=== PATIENT | male | born 1985 | race Caucasian/White ===

== ENCOUNTER 2022-11-13 17:54 | Emergency (ER) | payer OTHER, SELFPAY ==
[2022-11-13 18:01] VITALS: BP 167/115; PULSE 101; RESP 14; TEMP 36.5; O2SAT 98; BMI 31.7
--- NOTE | 2022-11-13 19:13 | ED.CHESTPAIN ---
HPI - Chest Pain General Time Seen by Provider: 19:14 Date Seen: 11/13/22 Chief Complaint: Chest Pain Stated Complaint: Chest Pain Time Seen by Provider: 11/13/22 18:13 Source: patient, RN notes reviewed and old records reviewed Mode of arrival: ambulatory Limitations: no limitations History of Present Illness HPI narrative: Jalen is a very pleasant 37-year-old gentleman nonsmoker with history of untreated hypertension who comes to the emergency room for evaluation regarding chest pain. Patient notes that his chest discomfort is in his left side of his chest and has been going on for weeks. He notes that it does not get worse when he is active in fact he kind of forgets about it at that time. He denied cough or shortness of breath to me but had expressed some shortness of breath and lightheadedness to the nurse. He has not had fever cough cold or congestion. He states that when the chest pain occurs he presses his thumb into the muscle and it seems to help. However when I ask him if the pain is on the outside of his chest he feels that it is deeper. Position changes do not really change the pain and as previously noted when he is active he states that he thinks his mind is not on it. He denies syncope, vertigo, abdominal pain, back pain. The pain does not radiate. He has no personal history of heart problems. He does describe noted high blood pressure that has been untreated for a long time. He does agree that he snores at night any does not use a CPAP. 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 He states that his made him appointment with primary care this coming week. He is sent in today as he had talked to a triage nurse. Jalen denies any calf tenderness, history of DVT, lower extremity edema. He denies a family history of heart disease. In fact he states he knows no one who has had a heart attack but does agree that everyone in his family has high blood pressure. He states he has been taught told to have this treated in the past. Today he states he thinks that maybe anxiety is also causing him difficulty. He states he has been thinking about this all week and is now getting more and more nervous that this is something serious. He states that he feels very anxious being here in feels like his heart is racing. Related Data Previous Rx's Medication Instructions Recorded metoprolol tartrate 25 mg tablet 25 mg PO BID #60 tabs 11/13/22 Allergies Allergy/AdvReac Type Severity Reaction Status Date / Time No Known Drug Allergies Allergy Verified 11/13/22 18:09 Review of Systems Status of ROS Reports: 10 or more systems reviewed and unremarkable except as noted in History and below Const Denies: fever or chills ENMT Denies: throat pain, neck pain, difficulty swallowing or vertigo Cardio Reports: chest pain and lightheadedness; Denies: palpitations, edema, swelling of feet/ankles, shortness of breath with exertion or shortness of breath when lying down Resp Denies: shortness of breath GI Denies: abdominal pain, nausea, vomiting or difficulty swallowing Musculo Denies: back pain, neck pain, extremity pain or extremity swelling Neuro Denies: headache, numbness in extremities, weakness in extremities, lack of coordination, vertigo or confusion Psych Reports: anxiety Endo Denies: excessive urination PFSH PFSH Social History Smoking Status: Never smoker How often do you have a drink containing alcohol: monthly or less AUDIT-C Alcohol total score: 1 Non-prescribed substance use: denies use Exam Narrative Exam Narrative: Jalen is alert and oriented. He appears fatigued to me. He is well spoken and is mentating normally. Face is symmetrical. Neck is supple. Heart with a regular rate and rhythm. Lungs are clear in all lung gonzáles. No CVA tenderness with percussion. Patient is noted to not have any significant tenderness or crepitus with palpation over left anterior chest wall. He did not note improvement of his symptoms when he is leaning forward. There is no murmur or rub auscultated. Abdomen is soft nontender. No pulsating mass. Lower extremities without edema. Calves bilaterally without tenderness. Negative Homans sign. Pedal pulses intact and are symmetrical. Const Vital Signs, click to edit/add: Vital Signs - 24 hr 11/13/22 18:01 Temperature 97.7 F Pulse Rate [Pulse Oximeter] 101 H Respiratory Rate 14 Blood Pressure [Right Upper Arm] 167/115 H Pulse Oximetry 98 Oxygen Delivery Method Room Air Documenting provider has reviewed patient's vital signs: yes Course Course Hospital Course: At this time differential diagnosis includes but is not limited to acute coronary event, aortic dissection, pleurisy, chest wall pain, pneumonia, anxiety, PE. At this time patient is in agreement for blood tests including CBC, comprehensive panel, CRP, troponin, D-dimer. Will also get chest x-ray as well as EKG. 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 Reevaluation(s) Reevaluation #1: Initial troponin and EKG reassuring. Recommend dose of Toradol 15 mg IV for treatment of what I think is chest wall discomfort. D-dimer is negative and chest x-ray is also reassuring. I do not think we are dealing with PE or aortic dissection given that there is no radiation of the discomfort and the D-dimer is negative. Will repeat EKG and troponin in 90 minutes time. Patient is noted to have persistently elevated heart rate 90-110. He does seem anxious but is driving tonight. He has had ongoing issues with blood pressure elevation. We spoke about blood pressure medications and I think that metoprolol 25 mg p.o. may be helpful in this particular circumstance. He is in agreement. Aspirin 81 mg p.o. at this time as initial troponin is negative. Vital Signs Vital signs: Initial Vital Signs Temperature 97.7 F 11/13/22 18:01 Temperature Source Temporal Artery Scan 11/13/22 18:01 Pulse Rate 101 H 11/13/22 18:01 Pulse Rhythm 11/13/22 18:01 Respiratory Rate 14 11/13/22 18:01 Blood Pressure 167/115 H 11/13/22 18:01 Blood Pressure Mean 132 11/13/22 18:01 Blood Pressure Position Sitting 11/13/22 18:01 Pulse Oximetry 98 11/13/22 18:01 Oxygen Delivery Method 11/13/22 18:01 Vital Signs Temperature 97.7 F 11/13/22 18:01 Pulse Rate 101 H 11/13/22 18:01 Respiratory Rate 14 11/13/22 18:01 Blood Pressure 167/115 H 11/13/22 18:01 Pulse Oximetry 98 11/13/22 18:01 Oxygen Delivery Method 11/13/22 18:01 Temperature 97.7 F 11/13/22 18:01 Pulse Rate 101 H 11/13/22 18:01 Respiratory Rate 14 11/13/22 18:01 Blood Pressure 167/115 H 11/13/22 18:01 Pulse Oximetry 98 11/13/22 18:01 Oxygen Delivery Method 11/13/22 18:01 MDM - Chest Pain MDM Narrative Medical decision making narrative: 1. Atypical chest pain-patient has 2 EKGs that are reassuring without any evidence of acute ST or T-wave changes. He has 2- troponins. D-dimer is negative. Patient describes discomfort that actually improves with activity or at least does not worsen. I would like to get his blood pressure improved but I wonder if the blood pressure is secondary to anxiety as well as the atypical chest pain. Recommend follow-up with primary MD. He already has an appointment for a full physical. Aspirin 81 mg p.o. is given tonight. I would like him to continue this daily upon going. 2. Retention-this is been ongoing for quite some time. Metoprolol 25 mg p.o. is given and blood pressure does come down 5-10 points. The heart rate is much improved and is now 70s to 80s. Patient tells me that he is feeling much better and is much more relaxed. He again states that he thinks he has been working himself up worried about what is going on and that this was part of the issue. He states knowing that the EKG and heart tests were negative is really helping him. 3. Disposition-patient lives in the [place] area. He is asking nursing if he can go home states he is ready to go home. I did state that I was she was pain-free but he states he is doing much better and is much more relaxed. He notes that the pain is improved with the Toradol. During his stay here he has had no arrhythmia and repeat tests that are all reassuring. Chest discomfort has been going on for weeks at this point and I do think that anxiety stress is a significant part of this. He also snores and he likely needs a sleep study. He states does feel comfortable going home but does agree to return for any recurrent symptoms. Medical Records Data Attestation: I reviewed the patient's medical records. Lab Data Attestation: I reviewed the patient's lab results. Labs: Lab Results 11/13/22 11/13/22 11/13/22 Range/Units 19:20 19:20 19:20 WBC 7.05 (4.50-11.00) K/uL RBC 6.07 H (4.30-5.90) m/uL Hgb 17.6 H (13.5-17.5) gm/dL Hct 49.0 (37.0-53.0) % MCV 81 (80-100) fL MCH 29 (26-34) pg MCHC 36 (32-36) gm/dL RDW Coeff of Marcial 11.1 L (11.5-15.5) % Plt Count 230 (140-440) K/uL Neut % (Auto) 61.2 (42.0-72.0) % Lymph % (Auto) 30.1 (20-44) % Hopkins % (Auto) 6.4 (0.0-11.0) % Eos % (Auto) 1.6 (0.0-7.0) % Baso % (Auto) 0.6 (0.0-3.0) % Neut # (Auto) 4.32 (1.7-7.0) K/uL Lymph # (Auto) 2.12 (0.90-2.90) K/uL Hopkins # (Auto) 0.50 (0.00-0.90) K/UL Eos # (Auto) 0.11 (0.00-0.50) K/uL Baso # (Auto) 0.04 (0.00-0.30) K/uL D-Dimer Quant (PE/DVT) 0.30 (0.00-0.50) ug/ml Sodium 140 (135-149) mmol/L Potassium 3.9 (3.6-5.1) mmol/L Chloride 105 (96-114) mmol/L Carbon Dioxide 23 (20-32) mmol/L BUN 16 (5-24) mg/dL Creatinine 0.9 (0.5-1.5) mg/dL Estimated Creat Clear 125.77 Estimated GFR 112 ml/min Glucose 94 (60-115) mg/dL Calcium 9.5 (8.4-10.6) mg/dL Total Bilirubin 0.8 (0.1-1.5) mg/dL AST 47 H (12-35) U/L ALT 84 H (4-50) U/L Alkaline Phosphatase 86 (40-150) U/L C-Reactive Protein < 0.5 L (0.5-1.0) mg/dL Total Protein 8.2 (6.0-8.3) g/dL Albumin 5.0 (3.3-5.0) g/dL POC Troponin I (0.01-0.04) ng/ml 11/13/22 11/13/22 Range/Units 19:20 20:50 WBC (4.50-11.00) K/uL RBC (4.30-5.90) m/uL Hgb (13.5-17.5) gm/dL Hct (37.0-53.0) % MCV (80-100) fL MCH (26-34) pg MCHC (32-36) gm/dL RDW Coeff of Marcial (11.5-15.5) % Plt Count (140-440) K/uL Neut % (Auto) (42.0-72.0) % Lymph % (Auto) (20-44) % Hopkins % (Auto) (0.0-11.0) % Eos % (Auto) (0.0-7.0) % Baso % (Auto) (0.0-3.0) % Neut # (Auto) (1.7-7.0) K/uL Lymph # (Auto) (0.90-2.90) K/uL Hopkins # (Auto) (0.00-0.90) K/UL Eos # (Auto) (0.00-0.50) K/uL Baso # (Auto) (0.00-0.30) K/uL D-Dimer Quant (PE/DVT) (0.00-0.50) ug/ml Sodium (135-149) mmol/L Potassium (3.6-5.1) mmol/L Chloride (96-114) mmol/L Carbon Dioxide (20-32) mmol/L BUN (5-24) mg/dL Creatinine (0.5-1.5) mg/dL Estimated Creat Clear Estimated GFR ml/min Glucose (60-115) mg/dL Calcium (8.4-10.6) mg/dL Total Bilirubin (0.1-1.5) mg/dL AST (12-35) U/L ALT (4-50) U/L Alkaline Phosphatase (40-150) U/L C-Reactive Protein (0.5-1.0) mg/dL Total Protein (6.0-8.3) g/dL Albumin (3.3-5.0) g/dL POC Troponin I 0.00 L 0.01 (0.01-0.04) ng/ml Imaging Data Chest x-ray: Attestation: I have reviewed the pertinent imaging results. My impression: I do not note any infiltrates or widened mediastinum. Radiologist's impression: Cardiovascular and mediastinum: Heart size and vasculature are normal in caliber and appearance. Lungs and pleural space: Lungs are clear.? No sign of infiltrate or mass.? No sign of pleural effusion.? No pneumothorax.? Bones and soft tissues: No acute findings. ECG Data Attestation: I personally reviewed and interpreted this ECG as follows: ECG interpretation date: 11/13/22 Prior ECG tracings: not available for review Interpretation: EKG 1. By my read shows sinus rhythm at a rate of 93. I do not note any acute ST or T-wave changes. EKG 2. By my read shows sinus rhythm at a rate of 90. I do not note any acute ST or T-wave changes. Discharge Plan Discharge Clinical Impression: Atypical chest pain Patient Disposition: Home, Self-Care Condition: Improved Additional Instructions: Continue the blood pressure called metoprolol tomorrow morning. He will take this medication day and night. This will lower your heart rate as well as lower your blood pressure. They may change this medication after your appointment. I would also like you to take a baby aspirin daily. Return to the emergency room for increasing chest pain, additional symptoms and as needed. Prescriptions: New metoprolol tartrate 25 mg tablet 25 mg PO BID Qty: 60 2RF Follow Up/Referrals: Rashawn Oneil MD [Staff Physician] - Stand Alone Forms: [employer] Info Instructions
--- NOTE | 2022-11-13 19:14 | CRLHL7_ITS ---
For Patients: As a result of the Century Cures Act, medical imaging exams and procedure reports are released immediately into your electronic medical record. You may view this report before your referring provider. If you have questions, please contact your health care provider. Indication: Chest pain Technique: Chest 1 view Comparison: None Findings/Impression: Cardiovascular and mediastinum: Heart size and vasculature are normal in caliber and appearance. Lungs and pleural space: Lungs are clear. No sign of infiltrate or mass. No sign of pleural effusion. No pneumothorax. Bones and soft tissues: No acute findings. Dictated by Carlo Darnell MD @ 11/13/2022 7:33:08 PM (Electronically Signed)
[2022-11-13 19:40] VITALS: BP 140/100; PULSE 93; RESP 16; O2SAT 96
[2022-11-13 19:46] LABS: Basophils Absolute Auto 0.04 K/uL (0.00-0.30); Basophils Percent Auto 0.6 % (0.0-3.0); Eosinophils Absolute Auto 0.11 K/uL (0.00-0.50); Eosinophils Percent Auto 1.6 % (0.0-7.0); Hemoglobin* 17.6 gm/dL (13.5-17.5); Immature Granulocytes Abs Auto 0.01 K/uL (0.00-0.30); Immature Granulocytes Pct Auto 0.1 %; Lymphocytes Absolute Auto 2.12 K/uL (0.90-2.90); Lymphocytes Percent Auto 30.1 % (20-44); Mean Corpuscular HGB Conc 36 gm/dL (32-36); Mean Corpuscular Hemoglobin 29 pg (26-34); Mean Corpuscular Volume 81 fL (80-100); Monocytes Percent Auto 6.4 % (0.0-11.0); Neutrophils Absolute Auto 4.32 K/uL (1.7-7.0); Neutrophils Percent Auto 61.2 % (42.0-72.0); Platelet Count* 230 K/uL (140-440); RDW Coefficient of Variation % 11.1 % (11.5-15.5); Red Blood Count 6.07 m/uL (4.30-5.90); White Blood Count* 7.05 K/uL (4.50-11.00)
[2022-11-13 19:47] LABS: Slide Review Reflex No
[2022-11-13 20:00] LABS: Chloride* 105 mmol/L (96-114); Sodium* 140 mmol/L (135-149)
[2022-11-13 20:01] LABS: Potassium* 3.9 mmol/L (3.6-5.1)
[2022-11-13 20:02] LABS: Creatinine* 0.9 mg/dL (0.5-1.5); Est. Creatinine Clearance* 125.77; Estimated Glomerular Filt Rate 112 ml/min
[2022-11-13 20:03] LABS: Alanine Aminotransferase* 84 U/L (4-50); Alkaline Phosphatase* 86 U/L (40-150); Aspartate Amino Transferase* 47 U/L (12-35); Bilirubin Total* 0.8 mg/dL (0.1-1.5); Carbon Dioxide* 23 mmol/L (20-32); Total Protein* 8.2 g/dL (6.0-8.3)
[2022-11-13 20:04] LABS: Blood Urea Nitrogen* 16 mg/dL (5-24); Calcium* 9.5 mg/dL (8.4-10.6); Glucose* 94 mg/dL (60-115)
[2022-11-13 20:06] LABS: C Reactive Protein* < 0.5 mg/dL (0.5-1.0)
[2022-11-13 20:40] VITALS: BP 146/104; PULSE 86; RESP 16; O2SAT 97
[2022-11-13] MEDS: KETOROLAC 15 MG/ML inj IVP (20:46)
[2022-11-13] MEDS: METOPROLOL TARTRATE 25 MG TABLET PO (20:46)
[2022-11-13 21:31] LABS: Troponin, Point-of-Care* 0.01 ng/ml (0.01-0.04)
[2022-11-13 21:40] VITALS: BP 141/105; PULSE 82; RESP 16; O2SAT 97
[2022-11-13] MEDS: ASPIRIN 81 MG TAB.CHEW PO ×2 (21:55→21:58)
== END 2022-11-13 22:04 | disposition home or self-care (01) ==
PROVIDERS: Emergency Provider Family Medicine
DX: R07.9 Chest pain, unspecified (principal)
CPT/HCPCS: 36415; 71045; 80053; 84484; 85025; 85379; 86140; 93005; 96374; 99285; A9270; J1885

== ENCOUNTER 2023-12-31 15:26 | Outpatient (CLI) | payer OTHER, SELFPAY | END 2023-12-31 15:27 | disposition home or self-care (01) | PROVIDERS: PCP Family Medicine; Visit Provider Family Medicine | DX: Z13.220 Encounter for screening for lipoid disorders (principal); Z13.228 Encounter for screening for other metabolic disorders | CPT/HCPCS: 80048; 80061 ==

== ENCOUNTER 2024-01-04 07:57 | Outpatient (CLI) | payer OTHER, SELFPAY | END 2024-01-04 07:58 | disposition home or self-care (01) | PROVIDERS: PCP Family Medicine; Visit Provider Family Medicine | DX: R79.89 Other specified abnormal findings of blood chemistry (principal); R68.82 Decreased libido; R53.83 Other fatigue | CPT/HCPCS: 80076; 84403; 84443 ==